=== PATIENT | female | born 2000 | race Caucasian/White ===

== ENCOUNTER → 2021-04-29 09:01 | Outpatient (CLI) | payer BC, SELFPAY ==
--- NOTE | ~2021-04-29 | MR_ITS ---
EXAMINATION: MR wrist RT wo con DATE: 04/29/2021 10:07 INDICATION: Cut and proximal disease of adult presenting with one year of right wrist pain TECHNIQUE: Magnetic resonance imaging (MRI) of the right wrist was performed without intravenous cont rast. Sequences performed include axial PD-weighted FSE and PD-weighted FS FSE, coronal PD-weighted F S FSE and T1-weighted SE, and sagittal PD-weighted FS FSE and PD-weighted FSE. COMPARISON: None FINDINGS: Intrinsic ligaments: The scapholunate and lunotriquetral ligaments are normal. Triangular fibrocartilage complex (TFCC): The triangular fibrocartilage including its foveal and styloid attachments as well as the dorsal and volar radioulnar ligaments are normal. The ulnar collateral ligament, ulnotriquetral ligament and men iscal homologue are normal. The extensor carpi ulnaris tendon sheath is normal. Extensor wrist: Extensor tendons of the wrist are normal. No tenosynovitis. Flexor wrist: The flexor tendons of the wrist are normal. No abnormality in the carpal tunnel with normal median n erve. Guyon's canal: Guyon's canal including the ulnar nerve and artery are normal. Bones/other: Normal marrow signal. No fracture, erosions, avascular necrosis or pathologic marrow replacing proces s. Joint spaces are normal with no focal cartilage defects appreciated. There is a ganglion cyst ludmila suring 7 x 6 x 4 mm which arises dorsally at the radiocarpal articulation. IMPRESSION: 1. 7 x 6 x 4 mm ganglion cyst dorsal aspect of the radiocarpal joint. 2. Otherwise unremarkable right wrist MRI with no osteonecrosis. Reviewed, dictated and finalized at location A.
== END ==
PROVIDERS: Visit Provider Orthopaedic Surgery
DX: M93.1 Kienbock's disease of adults (principal); M67.431 Ganglion, right wrist
CPT/HCPCS: 73221

== ENCOUNTER 2021-10-13 01:25 | Day surgery (SDC) | payer BC, SELFPAY ==
[2021-10-03 14:55] VITALS: BMI 23.0
--- NOTE | 2021-10-03 14:56 | PC.NURSE ---
Report to the Outpatient Waiting Room, entrance under the green pavilion located off [facility], at time _0600 on date _10/13/21 . OR Time: . - You will be asked a series of questions to screen for COVID 19 for your protection. - A mask is required within the hospital. Preoperative COVID Testing Requirements: No COVID Test needed if: (proof is required; if not received patient will have Rapid Test prior to entry) - Patient has received COVID Vaccine at least 14 days prior to procedure date or - Patient has positive COVID test result within last 90 days of surgery date. COVID Test needed if above criteria is not met If not COVID vaccinated a COVID test must be conducted within 72 hours of surgery and patient is asked to isolate self from time of testing until procedure. You will go to the [facility] for your COVID testing. The [facility] site is located at the corner of [address] [facility]. You will only be called if COVID results are positive and your surgeon may reschedule your elective surgery date. Patients may have clear liquids (water, carbonated beverages, clear teas, apple juice) until 3 hours prior to surgery with a maximum of 20 ounces. - No food from midnight until time of surgery - Infants may have breast milk until 4 hours before surgery, formula 6 hours prior to surgery. - Children will be allowed to drink immediately following surgery. If applicable, please bring a bottle or sippy cup to assist with drinking. Juice, water, soda, and popsicles are readily available. For infants on formula, please bring formula the day of surgery. Pacifiers are allowed. Take the following medications with a SIP of water the morning of surgery: ____none- if needed can do flonase or inhaler Medications to discontinue per physician Date to take last dose Please no make-up, nail kazakh, hairspray, perfume, deodorant, or body powder the day of surgery. No jewelry (including any body piercings) or valuables the day of surgery, leave them at home. Please take a shower or bath the night before, or the morning of, surgery with an antibacterial soap. Wear comfortable, loose fitting clothing. Children are encouraged to wear pajamas. - Jewelry must be removed prior to entering the operating room. Rings and piercings that are not removed may be cut off. - The hospital will not accept responsibility for valuables. - Please leave all valuables, including medications, at home the day of surgery. If you are going home after surgery, a licensed refrigerated company driver must drive you home. - NO public transportation without another adult. - We recommend that an adult stay with you for 24 hours following discharge. - We also recommend that you do not drive, make important decision, drink alcoholic beverages, or take any drugs that were not prescribed by your health care provider for at least 24 hours after your discharge time. For Pediatric surgeries, we recommend two adults accompany the child home (only one inside the building at this time). Follow any additional instructions given to you from your surgeon. Telephone instructions given to ___patient and asked if any additional questions and then verbalized understanding. Patient advised to call surgeon office or pre surgery nurse liaison [phone] if any additional questions.
--- NOTE | 2021-10-12 12:58 | PM.IMHP ---
H&P: HPI History of Present Illness Date/Time: 10/12/21 12:58 Chief Complaint: Right wrist mass Narrative: 21-year-old woman with right wrist pain. Cystic mass on MRI. Continued pain despite conservative treatment. Presents for operative treatment. Review of Systems Constitutional: Constitutional: Denies fever(s) Eyes: Eyes: Denies blurry vision ENT: Reports Normal hearing present Cardiovascular: Cardiovascular: Denies chest pain and Denies dyspnea Respiratory: Respiratory: Denies dyspnea and Denies wheezing Gastrointestinal: Gastrointestinal: Denies abdominal pain Genitourinary: Genitourinary: Denies urinary urgency Musculoskeletal: Musculoskeletal: Reports as per HPI and Denies numbness Integumentary/Breasts: Skin/Breast: Denies changing lesions and Denies sores Neurologic: Reports Normal hearing present, Denies behavioral changes, Denies confusion, Denies numbness and Denies convulsions Psychiatric: Psychiatric: Denies behavioral changes, Denies confusion and Denies hallucinations Endocrine: Endocrine: Denies heat intolerance Hematologic/Lymphatic: Hematologic/Lymphatic: Denies easy bleeding Allergic/Immunologic: Allergic/Immunologic: Denies wheezing PMFSH Past Medical History Medical History Asthma Ganglion cyst of dorsum of right wrist 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 Surgical History Surgical History History of placement of ear tubes Family History Family History Other Arthritis Asthma Diabetes mellitus Heart disease Social History Social History Smoking status: Never smoker Alcohol intake: current Alcohol use details: maybe twice a month Substance use: never Substance use type: does not use Living arrangements: with family Additional living arrangements comments: pt stated in school and lives in a dorm, while at school Gender identity (if verbalized by the patient): Female Spiritual care concerns: No Meds Home Medications and Allergies Home Medications Medication Instructions Recorded Confirmed Type cetirizine 10 mg capsule 10 mg PO DAILY PRN 04/20/21 10/03/21 History norethindrone 1 mg-ethinyl 1 tablet PO DAILY 04/20/21 10/03/21 History estradiol 20 mcg (21)-iron 75 mg (7) tablet albuterol sulfate 90 mcg/actuation 1 inh INHALATION Q4H PRN #8.5 g 06/16/21 10/03/21 Rx aerosol inhaler fluticasone propionate [Flonase] 1 spray INTRANASAL DAILY 10/03/21 10/03/21 History Allergies Allergy/AdvReac Type Severity Reaction Status Date / Time NKDA Allergy Unknown Unknown Uncoded 07/21/21 11:03 Exam Const: General: healthy appearing; No in distress or confusion Orientation/consciousness: oriented to person, oriented to place, oriented to time and No confusion HENMT: Head: normal to inspection, normocephalic and atraumatic Eyes: Conjunctivae: conjunctivae normal Sclera: sclerae normal Neck: Neck: supple and nontender Resp: Effort & Inspection: normal respiratory effort and no audible wheezes Cardio: Rate: regular rate Rhythm: regular rhythm Skin: General skin exam: no rashes or lesions noted Neuro: General: oriented to person, oriented to place, oriented to time and No confusion Extrem: Right upper extremity: normal to inspection, shoulder/upper arm no tenderness and no swelling, elbow/forearm normal ROM; no tenderness and no swelling, wrist tenderness of the distal radius and of the dorsal wrist, swelling (moderate) of the dorsal wrist and abnormal ROM pain with active ROM during with extension and with flexion and pain with passive ROM during with extension and with flexion (Ext 30, Flex 30, Pro 40, Sup 35) and Extremity exam: right hand neuromotor exam normal, neuromotor exam abnormal
[2021-10-13] MEDS: ACETAMINOPHEN 500 MG TABLET 1000 MG PO (06:25)
[2021-10-13] MEDS: LACTATED RINGERS 1,000 ML 30 ML IV CONT (06:30)
[2021-10-13] MEDS: KETOROLAC 15 MG/ML VIAL (*BKC) IV PUSH (06:36)
--- NOTE | 2021-10-13 06:55 | WPDHPUPDATE1 ---
History and Physical Update Update Date/Time: 10/13/21 06:55 History and Physical has been reviewed, including an updated exam of the patient. There are NO changes in the patient's condition. Risks, benefits, and alternatives have been discussed and questions answered. Patient agrees to proceed with procedure.
[2021-10-13 07:12] VITALS: BP 119/79; PULSE 92; RESP 16; TEMP 36.6; O2SAT 98
--- NOTE | 2021-10-13 07:12 | P.PNAN_ITS ---
Anes - Initial Pre Proc Eval Procedure: Operation Date: 10/13/21 07:30 Proposed Procedures p Excision Right Wrist Ganglion Cyst - Jeremías Looney MD Date/Time: 10/13/21 07:12 Surgeon: Jeremías Looney MD Pre Op Diagnosis: Rt Wrist Ganglion Cyst Patient Data Age: 21 Gender: F Height: 1.8 m Weight: 74.2 kg Allergies Allergy/AdvReac Type Severity Reaction Status Date / Time No Known Allergies Allergy Verified 10/13/21 07:10 Home Medications Medication Instructions Recorded Confirmed Type cetirizine 10 mg capsule 10 mg PO DAILY PRN 04/20/21 10/13/21 History norethindrone 1 mg-ethinyl 1 tablet PO DAILY 04/20/21 10/13/21 History estradiol 20 mcg (21)-iron 75 mg (7) tablet albuterol sulfate 90 mcg/actuation 1 inh INHALATION Q4H PRN #8.5 g 06/16/21 10/13/21 Rx aerosol inhaler fluticasone propionate 1 spray INTRANASAL DAILY 10/03/21 10/13/21 History hydrocodone-acetaminophen 1 tablet PO Q6H PRN #20 tablet 10/13/21 Rx ondansetron HCl [Zofran] 4 mg PO Q8H PRN #10 tablet 10/13/21 Rx sennosides-docusate sodium [Senna 1 tab-cap PO HS #14 tablet 10/13/21 Rx with Docusate Sodium] Patient hx anesthesia problems: none Family hx anesthesia problems: none Results Review: All pre-operative results and documents have been reviewed as part of the pre-operative evaluation. 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 Surgical History Surgical History History of placement of ear tubes Family History Family History Other Arthritis Asthma Diabetes mellitus Heart disease Social History Social History Smoking status: Never smoker Alcohol intake: current Alcohol use details: maybe twice a month Substance use: never Substance use type: does not use Living arrangements: with family Additional living arrangements comments: pt stated in school and lives in a dorm, while at school Gender identity (if verbalized by the patient): Female Spiritual care concerns: No Anes - Eval Final PreProcedure Day of Procedure 10/13/21 07:12 Patient weight: normal Heart: regular rate and rhythm Lungs: clear to auscultation Airway: Mallampati scale Neurological: alert and oriented Last oral intake: >/= 8 hours ASA classification: II Emergent: no Anesthetic plan: proceed Anesthesia type and monitoring: general LMA and standard monitoring Results Review: All pre-operative results and documents have been reviewed as part of the pre-operative evaluation. Informed Consent: The patient's anesthetic plan and its attendant risks and benefits were discussed with the patient/family/POA. Questions were solicited and answers provided to the satisfaction of the patient/family/POA.
[2021-10-13] MEDS: ceFAZolin 2 GM/D5W 50 ML 2 GM/50 ML BAG IVPB (07:26)
[2021-10-13] MEDS: BUPIVACAINE HCL 0.5% PF 30 ML VIAL INFILTRATE (07:55)
[2021-10-13 08:12] VITALS: BP 112/67; PULSE 76; RESP 16; O2SAT 98
--- NOTE | 2021-10-13 08:25 | P.OP_ITS ---
Procedure Note - Detailed Date of Procedure 10/13/21 Pre-op Diagnosis Rt Wrist Ganglion Cyst Post-op Diagnosis same Procedure Performed Excision of ganglion cyst right wrist Surgeon Jeremías Looney MD Publishing [employer] 1[employer] human resources executive assistant Anesthesia general, MAC and local Indications 21-year-old female with right wrist pain. MRI demonstrates cystic type mass dorsum of the right wrist joint. Failed conservative treatment with injections, therapy and bracing. Presents now for operative removal. Findings 1 cm cyst at the dorsal radial scaphoid joint. Description of Procedure Patient identified in the preoperative holding. Informed consent given. Operative extremity marked. Patient received intravenous antibiotics. Patient brought to the operating room where underwent sedation anesthetic by anesthesia team. Positioned supine on operating room table. Time-out performed confirming the patient, site of the surgery and the plan. Right hand and wrist prepped draped usual sterile surgical fashion using ChloraPrep skin solution. Hand and wrist exsanguinated and arm tourniquet inflated to 225 mmHg. Dorsal longitudinal incision made over the cyst right wrist with a 15 blade knife. Hem ostasis controlled electrocautery. Care was taken to isolate and protect the nerve elements. Partial release of the dorsal retinaculum with a 15 blade knife. Dissection down to the dorsal radial scaphoid joint. Cyst was identified and bluntly dissected from the surrounding tissue. This was then removed as 1 unit and passed off as specimen. The scaphoid lunate ligament was noted to be intact. Thorough irrigation performed. Retinaculum was then repaired with 3-0 Monocryl interrupted suture. Skin repaired with 3-0 Monocryl running subcuticular stitch. Steri-Strips applied over the skin. Sterile dressing applied. The patient was then woken from anesthesia, taken to the recovery room in stable condition. All sponge, needle, instrument counts were correct at the end of the case. Estimated Blood Loss 1 Tourniquet Time 20 Drains No Packing No Pathology yes (Right dorsal wrist ganglion cyst) Complications None Condition stable Disposition PACU
[2021-10-13 08:40] VITALS: BP 107/71; PULSE 65; RESP 14
[2021-10-13 09:08] VITALS: BP 103/69; PULSE 57; RESP 16
== END 2021-10-13 09:24 | disposition home or self-care (01) ==
PROVIDERS: PCP Family Medicine; Visit Provider Orthopaedic Surgery
PROC: (CPT 25111; principal; 2021-10-13 07:30)
DX: M67.431 Ganglion, right wrist (principal); M93.1 Kienbock's disease of adults; J45.909 Unspecified asthma, uncomplicated; Z79.51 Long term (current) use of inhaled steroids
CPT/HCPCS: 25111; 88304; 88305; A9270; J0690; J1885; J2250; J2704; J3010; J7120

== ENCOUNTER 2023-02-13 09:21 | Emergency (ER) | payer BC, SELFPAY ==
--- NOTE | 2023-02-13 09:25 | ED.URI ---
HPI - URI/Sore Throat General Chief Complaint: Upper Respiratory Infection Stated Complaint: URI Time Seen by Provider: 02/13/23 09:30 Source: patient, RN notes reviewed and old records reviewed Mode of arrival: ambulatory Limitations: no limitations History of Present Illness HPI Narrative: 22-year-old female presents to the [facility] with complaints of nasal congestion and sinus pressure over the last 9-10 days. Take Zyrtec every day. Has been using Afrin. Has been using Sudafed and [id number] cold medicine with very minimal relief. Denies any fevers, chest pain, abdominal pain. States that treating it as if it was her allergies. Onset (ago): day(s) (06-17) Consistency: constant Treatments prior to arrival: cold medicine Related Data Allergies Allergy/AdvReac Type Severity Reaction Status Date / Time No Known Allergies Allergy Verified 02/13/23 09:30 Review of Systems Review of Systems: All systems reviewed & are unremarkable except as noted in HPI and below Constitutional: Constitutional: Reports no additional constitutional complaints Eyes: Eyes: Reports no additional eye complaints ENT: Reports as per HPI, Reports nasal congestion, Reports sinus pain and Reports sinus pressure Cardiovascular: Cardiovascular: Reports no additional cardiovascular complaints, Denies chest pain and Denies dyspnea Respiratory: Respiratory: Reports no additional respiratory complaints, Denies chest congestion, Denies cough and Denies dyspnea Gastrointestinal: Gastrointestinal: Reports no additional gastrointestinal complaints, Denies abdominal pain, Denies nausea and Denies vomiting Musculoskeletal: Musculoskeletal: Reports no additional musculoskeletal complaints Integumentary/Breasts: Skin/Breast: Reports system reviewed and no additional complaints, except as docu Neurologic: Reports system reviewed and no additional complaints, except as documented Psychiatric: Psychiatric: Reports no additional psychiatric complaints Allergic/Immunologic: Allergic/Immunologic: Reports no additional allergic/immunologic complaints [facility] Surgical History Surgical History Ganglion cyst of dorsum of right wrist History of placement of ear tubes Family History Family History Other Arthritis Asthma Diabetes mellitus Heart disease Social History Social History Smoking status: Never smoker Alcohol intake: current Alcohol use details: maybe twice a month Substance use: never Substance use type: does not use Living arrangements: with family Additional living arrangements comments: pt stated in school and lives in a dorm, while at school Occupation/Education: student Gender identity (if verbalized by the patient): Female Spiritual care concerns: No Comments At the time of my signature, I reviewed and agree with the nursing past medical, surgical, social, and family history. There is no relevant family history pertinent to the patient complaint. Exam Const: General: cooperative, healthy appearing, comfortable, no acute distress, well developed, alert and well nourished Nutritional Appearance: well nourished Orientation/consciousness: patient oriented x3 Limitations: no limitations HENMT: Head: normal to inspection Ears: hearing grossly normal bilaterally, external ears normal, EAC's normal and TM abnormal with fluid behind the TM and scarred bilateral; not bulging and not erythematous Face/Nose/Sinus: Normal external nose present, Normal nares present, Abnormal mucous membranes and turbinates present boggy; not erythematous, Nasal discharge present clear, normal facial exam, face symmetric and sinus tenderness Face and sinus: normal facial exam Mouth: Yes Normal oral and palatal mucosa present, Yes lip normal and Yes moist mucous membranes Throat
[2023-02-13 09:28] VITALS: BP 118/64; PULSE 79; RESP 16; TEMP 36.9; O2SAT 100
== END 2023-02-13 09:42 | disposition home or self-care (01) ==
PROVIDERS: Emergency Provider Nurse Practitioner; PCP Family Medicine
DX: J01.40 Acute pansinusitis, unspecified (principal)
CPT/HCPCS: 99213; G0463

== ENCOUNTER 2024-08-05 12:27 | Emergency (ER) | payer BC, SELFPAY ==
[2024-08-05 12:42] VITALS: BP 113/77; PULSE 99; RESP 18; TEMP 36.8; O2SAT 98
--- NOTE | 2024-08-05 13:44 | ED_ITS ---
HPI - URI/Sore Throat General Chief Complaint: Upper Respiratory Infection Stated Complaint: Cough, Fever Time Seen by Provider: 08/05/24 13:45 Source: patient, RN notes reviewed and old records reviewed Mode of arrival: ambulatory Limitations: no limitations History of Present Illness HPI Narrative: 24-year-old female to [facility] with complaint Dry cough for 1 week. Patient states that she saw a provider through her insurance on a tele health visit yesterday and was prescribed a cough suppressant and nasal spray. Patient states that last night she started running a temperature up to 100.7?. 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 Patient resting comfortably in exam room in no acute distress. Respirations even and nonlabored. Patient able to speak in complete sentences without difficulty. Related Data Home Medications Medication Instructions Recorded Confirmed benzonatate 100 mg capsule See Rx Instructions .Route .COMPLEX 08/05/24 08/05/24 ipratropium bromide 21 mcg (0.03 See Rx Instructions .Route .COMPLEX 08/05/24 08/05/24 %) nasal spray Allergies Allergy/AdvReac Type Severity Reaction Status Date / Time No Known Allergies Allergy Verified 08/05/24 13:30 Review of Systems Review of Systems: All systems reviewed & are unremarkable except as noted in HPI and below Constitutional: Constitutional: Reports no additional constitutional complaints Eyes: Eyes: Reports no additional eye complaints ENT: Reports system reviewed and no additional complaints, except as documented Cardiovascular: Cardiovascular: Reports no additional cardiovascular complaints, Denies chest pain and Denies dyspnea Respiratory: Respiratory: Reports as per HPI, Reports cough and Denies dyspnea Musculoskeletal: Musculoskeletal: Reports no additional musculoskeletal complaints Neurologic: Reports system reviewed and no additional complaints, except as documented Psychiatric: Psychiatric: Reports no additional psychiatric complaints [facility] Surgical History Surgical History Ganglion cyst of dorsum of right wrist History of placement of ear tubes Family History Family History Other Arthritis Asthma Diabetes mellitus Heart disease Social History Social History Smoking status: Never smoker Alcohol intake: current Alcohol use details: maybe twice a month Substance use: never Substance use type: does not use Living arrangements: with family Additional living arrangements comments: pt stated in school and lives in a dorm, while at school Occupation/Education: student Gender identity (if verbalized by the patient): Female Spiritual care concerns: No Comments At the time of my signature, I reviewed and agree with the nursing past medical, surgical, social, and family history. There is no relevant family history pertinent to the patient complaint. Exam Const: General: cooperative, healthy appearing, comfortable, no acute distress, alert and well nourished Nutritional Appearance: well nourished Orientation/consciousness: patient oriented x3 Limitations: no limitations HENMT: Head: normal to inspection Ears: external ears normal Face/Nose/Sinus: Normal external nose present, Normal nares present, normal facial exam, No erythema and No edema Face and sinus: normal facial exam, no erythema and no edema Mouth: Yes Normal oral and palatal mucosa present Eyes: General: appearance normal, both eyes and all related structures Neck: Neck: normal visual inspection, full ROM and no meningeal signs Lymphatic: no lymphadenopathy noted and no lymphedema noted Chest: Chest palpation & inspection: normal inspection of the chest Resp: Effort & Inspection: normal respiratory effort and able to speak in complete sentences Auscultation: diminished lung sounds bilateral in the lower lung maldonado Cardio: Jugular venous distension: no JVD Rate: regular rate Rhythm: regular rhythm Back/Spine/Pelvis: Cervical Spine: cervical ROM normal Skin: General skin exam: normal color, no rashes or lesions noted and turgor normal Neuro: General: patient oriented x3, gait normal, moves all extremities and no meningeal signs Speech: normal speech Gait exam (Neuro): Normal gait present Extrem: General: normal to inspection, full ROM and capillary refill normal Psych: Appearance: grossly normal and well kempt Course Course Emergency Course: Some parts of this dictation were generated by voice recognition software and may contain typographical and/or grammatical inaccuracies. Level of Care: Express Care Visit Vital Signs Vital signs: Vital Signs Temperature 36.8 C 08/05/24 12:42 Pulse Rate 99 08/05/24 12:42 Respiratory Rate 18 08/05/24 12:42 Blood Pressure 113/77 08/05/24 12:42 Pulse Oximetry 98 08/05/24 12:42 Oxygen Delivery Room Air 08/05/24 12:42 Temperature 36.8 C 08/05/24 12:42 Pulse Rate 99 08/05/24 12:42 Respiratory Rate 18 08/05/24 12:42 Blood Pressure 113/77 08/05/24 12:42 Pulse Oximetry 98 08/05/24 12:42 Oxygen Delivery Room Air 08/05/24 12:42 reviewed MDM - URI/Sore Throat MDM Narrative Medical decision making narrative: 24-year-old female to [facility] with complaint Dry cough for 1 week. Patient states that she saw a provider through her insurance on a tele health visit yesterday and was prescribed a cough suppressant and nasal spray. Patient states that last night she started running a temperature up to 100.7?. 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 Patient resting comfortably in exam room in no acute distress. Respirations even and nonlabored. Patient able to speak in complete sentences without difficulty. Conversation had with patient about importance of discontinuing cough suppressant. Patient verbalized understanding. On exam, shallow breathing noted. Diminished lung sounds at bilateral bases. Patient is sitting comfortably in exam room nontoxic in appearance. Patient appropriate for outpatient treatment and follow-up. Discharge instructions reviewed with patient, as well as provided in writing per nursing staff. The instructions also include specific and strict return/GO TO THE ER as well as f/u information. All questions have been answered, and the patient deny any further questions with discharge and discharge plan. Some parts of this dictation were generated by voice recognition software and may contain typographical and/or grammatical inaccuracies. Differential Diagnosis Differential diagnosis: Likely upper respiratory infection, croup, otitis media, sinusitis, viral infection, bronchitis, influenza and pharyngitis Discharge Plan Discharge Clinical Impression: Cough Patient Disposition: Home, Self-Care Condition: Stable Instructions: Acute Cough (ED) Additional Instructions: -Alternate Tylenol and Motrin per package directions for fever or pain. -Antihistamine medication such as Benadryl at night and Zyrtec/Claritin/Sindi during the day can help improve symptoms. -Use Flonase twice a day for 5 days then daily to help reduce the inflammation and dry up your sinuses. -You can also use Sudafed or Mucinex. Be sure to drink plenty of water with these medications at least 8 ounces with every dose and it is important to drink 8 to 10 glasses of water per day. Water is a natural decongestant -Eat and drink things that are easy to swallow, like tea or soup, or popsicles. -Oral rinses such as: Salt water gargles and/or may use topical anesthetic (eg. Chloraseptic spray) or lozenges to relieve dryness or throat pain). -Frequent hand washing or hand downstairs maid is one of the best ways to prevent spread of infection. -Using a vaporizer or humidifier at night will also help thin secretions and help with coughing up phlegm. -Follow up with primary care provider in 2-3 days if condition is not improving; or seek ER visit if you have trouble breathing, cannot drink enough fluids, have muffled voice, difficulty opening your mouth, or severe swelling. Prescriptions: New azithromycin 250 mg tablet 250 mg PO DAILY Qty: 6 0RF Rx Instructions: 250 mg orally. Take TWO tablets today, then one tablet daily for 4 days. No Action benzonatate 100 mg capsule See Rx Instructions .ROUTE .COMPLEX Rx Instructions: PRESCRIBED 08/04 ipratropium bromide 21 mcg (0.03 %) spray,non-aerosol See Rx Instructions .ROUTE .COMPLEX Rx Instructions: PRESCRIBED 08/05 Follow-up/Referrals: Tito Sanders MD [Primary Care Provider] - Stand Alone Forms: Work/School Release IP
== END 2024-08-05 14:00 | disposition home or self-care (01) ==
PROVIDERS: Emergency Provider Nurse Practitioner Family; PCP Family Medicine
DX: R05.9 Cough, unspecified (principal)
CPT/HCPCS: 99213; G0463